=== PATIENT | male | born 1940 | race Caucasian/White ===

== ENCOUNTER 2017-08-14 12:41 | Day surgery (SDC) | payer MEDICARE, OTHER ==
[~2017-08-14] VITALS: Ht 177.8 cm; Wt 1058.2 kg
[~2017-08-14 12:41] MED LIST: ASCO1ER PO; ASPI325EC PO; ASPI81EC PO; MAGNESIUM250 MG; METO25; METO25ER PO; MULVITMINF PO; RXOXYACE PO; SIMV10 PO; SIMV20 PO; Simvastatin20 MG; Vitamin C100 M1 PO
== END 2017-08-14 15:35 | disposition home or self-care (01) ==
LOC: ORSCSDS 12:41
PROVIDERS: Internal Medicine Gastroenterology
PROC: 0DBK8ZX Excision of Ascending Colon, Via Natural or Artificial Opening Endoscopic, Diagnostic (ICD-10-PCS; principal; 2017-08-14 14:00)
DX: Z12.11 Encounter for screening for malignant neoplasm of colon (principal); D12.2 Benign neoplasm of ascending colon; K64.8 Other hemorrhoids; K57.30 Diverticulosis of large intestine without perforation or abscess without bleeding; Z86.010 Personal history of colon polyps; Z95.0 Presence of cardiac pacemaker; E11.9 Type 2 diabetes mellitus without complications; G47.33 Obstructive sleep apnea (adult) (pediatric); Z87.891 Personal history of nicotine dependence; E66.9 Obesity, unspecified; Z68.33 Body mass index [BMI] 33.0-33.9, adult; Z79.82 Long term (current) use of aspirin; Z79.899 Other long term (current) drug therapy
CPT/HCPCS: 82947; 88305; J2250; J7120

== ENCOUNTER 2019-01-12 23:48 | Emergency (ER) | payer MEDICARE, OTHER ==
[~2019-01-12] VITALS: Ht 177.8 cm; Wt 111.1 kg
== END 2019-01-13 00:51 | disposition home or self-care (01) ==
LOC: ER 23:48
DX: S01.412A Laceration without foreign body of left cheek and temporomandibular area, initial encounter (principal); I25.10 Atherosclerotic heart disease of native coronary artery without angina pectoris; E11.9 Type 2 diabetes mellitus without complications; M19.90 Unspecified osteoarthritis, unspecified site; X58.XXXA Exposure to other specified factors, initial encounter
CPT/HCPCS: 12011; 99282-25

== ENCOUNTER 2024-09-17 12:08 | Day surgery (SDC) | payer MEDICARE ==
[~2024-09-17] VITALS: Ht 177.8 cm; Wt 106.4 kg
[~2024-09-17 12:08] MED LIST changes: +Balanced Salt Epinephrine Irrigation Solution 500 mL IR SCH; +ELIQUIS5 M2 PO; +Lidocaine HCl/Pf 1% 5 ML VIAL XX SCH; +METO50 PO; +Moxifloxacin HCL 0.5 MG/0.1 ML 0.4MLSYR RIGHTEYE SCH; +NS 500 ML IV ONE; +PHENYLEPHRINE\\TROPICAMIDE\\TETRACAINE OPHTHALMIC DILATING SOLN RIGHTEYE PRN; +Povidone-Iodine 450 DROP/30 ML Solution ONE; +Povidone-Iodine 450 DROP/30 ML Solution RIGHTEYE SCH; +Tetracaine HCl/Pf 0.5% Opth Soln 4 ml ONE; +Triamcinolone Inj Susp 40 MG / ML 1ML Vial INJ SCH; +Triamcinolone Inj Susp 40 MG / ML 1ML Vial ONE; +ZOCOR20 MG PO
[2024-09-17] MEDS ORDERED: AMLO5 PO (12:57)
[2024-09-17] MEDS ORDERED: CENTRUM SILVER1 EAC2 PO (12:59)
[2024-09-17] MEDS ORDERED: COQMAX UBIQUIN100 MG PO (13:00)
[2024-09-17] MEDS ORDERED: VITAMIN D310 MC4 PO (13:01)
[2024-09-17] MEDS ORDERED: ASCO500 PO (13:01)
[2024-09-17] MEDS ORDERED: NS 500 ML IV ONE (13:20)
[2024-09-17] MEDS ORDERED: Midazolam HCl 1MG / ML 2ML Vial ONE (13:42)
[2024-09-17] MEDS ORDERED: FentaNYL Citrate 50 MCG/ML 2 ML Injection ONE (13:46)
[2024-09-17 14:08] VITALS: BP 151/94
--- NOTE | 2024-09-17 14:39 | NUR ---
09/17/24 9560 JEM NUNEZ PT UP TO THE BR WITH ASSISTANCE- WITH PT. USED WC.
== END 2024-09-17 15:05 | disposition home or self-care (01) ==
LOC: ORSCSDS 12:08
PROVIDERS: Ophthalmology
PROC: 08RJ3JZ Replacement of Right Lens with Synthetic Substitute, Percutaneous Approach (ICD-10-PCS; principal; 2024-09-17 13:30)
DX: E11.36 Type 2 diabetes mellitus with diabetic cataract (principal); H25.813 Combined forms of age-related cataract, bilateral; H02.839 Dermatochalasis of unspecified eye, unspecified eyelid; I10 Essential (primary) hypertension; K21.9 Gastro-esophageal reflux disease without esophagitis; H11.001 Unspecified pterygium of right eye; G47.33 Obstructive sleep apnea (adult) (pediatric); E78.5 Hyperlipidemia, unspecified; I25.10 Atherosclerotic heart disease of native coronary artery without angina pectoris; Z79.899 Other long term (current) drug therapy
CPT/HCPCS: 82947; J2250; J3010; J3301; J7040; V2632

== ENCOUNTER 2024-09-24 11:34 | Day surgery (SDC) | payer MEDICARE ==
[~2024-09-24] VITALS: Ht 177.8 cm; Wt 104.6 kg
[~2024-09-24 11:34] MED LIST changes: +AMLO5 PO; +ASCO500 PO; +CENTRUM SILVER1 EAC2 PO; +COQMAX UBIQUIN100 MG PO; +Moxifloxacin HCL 0.5 MG/0.1 ML 0.4MLSYR LEFTEYE SCH; -NS 500 ML IV ONE; +PHENYLEPHRINE\\TROPICAMIDE\\TETRACAINE OPHTHALMIC DILATING SOLN LEFTEYE PRN; +Povidone-Iodine 450 DROP/30 ML Solution LEFTEYE SCH; +VITAMIN D310 MC4 PO
[2024-09-24] MEDS ORDERED: NS 500 ML IV ONE (12:20)
[2024-09-24] MEDS ORDERED: Midazolam HCl 1MG / ML 2ML Vial ONE (12:36)
[2024-09-24] MEDS ORDERED: FentaNYL Citrate 50 MCG/ML 2 ML Injection ONE (12:36)
[2024-09-24 13:03] VITALS: BP 155/95
== END 2024-09-24 13:22 | disposition home or self-care (01) ==
LOC: ORSCSDS 11:34
PROVIDERS: Ophthalmology
PROC: 08RK3JZ Replacement of Left Lens with Synthetic Substitute, Percutaneous Approach (ICD-10-PCS; principal; 2024-09-24 13:00)
DX: E11.36 Type 2 diabetes mellitus with diabetic cataract (principal); H25.812 Combined forms of age-related cataract, left eye; H21.81 Floppy iris syndrome; Z96.1 Presence of intraocular lens; H02.834 Dermatochalasis of left upper eyelid; H02.831 Dermatochalasis of right upper eyelid; I25.10 Atherosclerotic heart disease of native coronary artery without angina pectoris; E78.5 Hyperlipidemia, unspecified; I10 Essential (primary) hypertension; G47.33 Obstructive sleep apnea (adult) (pediatric); E13.69 Other specified diabetes mellitus with other specified complication; Z87.891 Personal history of nicotine dependence; Z79.01 Long term (current) use of anticoagulants; Z79.899 Other long term (current) drug therapy
CPT/HCPCS: 82947; J2250; J3010; J3301; V2632